=== PATIENT | female | born 1930 | race Caucasian/White ===

== ENCOUNTER 2017-01-19 13:59 | Inpatient (IN) | payer MEDICARE, BC ==
[~2017-01-19] VITALS: Ht 160 cm; Wt 50.3 kg
--- NOTE | ~2017-01-19 | HP ---
PATIENT: OLIVA MARIE MEDICAL RECORD: [id number] ACCOUNT: [id number] LOCATION:[id number] : 31 ADMISSION DATE: 01/19/17 HISTORY AND PHYSICAL EXAMINATION CHIEF COMPLAINT: Back pain. HISTORY OF PRESENT ILLNESS: An 86-year-old white female patient, currently of mine at [facility] who fell a couple of weeks ago and has been complaining of back pain ever since. MRI was obtained that showed a T12 compression fracture. 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 She has been set up with Dr. Arias who was going to perform kyphoplasty. At this time, we will admit the patient to the hospital where she will get a kyphoplasty tomorrow and then be sent back to [facility]. PAST MEDICAL HISTORY: Anemia of chronic kidney disease, dementia, depression, fibromyalgia, GERD, hypertension, lupus, obstructive sleep apnea, osteoporosis and history of pancreatitis. PAST SURGICAL HISTORY: Tonsillectomy and adenoidectomy, cataract surgery, hysterectomy, cholecystectomy and right eye removal. FAMILY HISTORY: Noncontributory. SOCIAL HISTORY: Nonsmoker, nondrinker. ALLERGIES: AMBIEN, CIPRO, DEMEROL, FLAGYL, LATEX, MORPHINE, PYRIDIUM ROCEPHIN AND XANAX. MEDICATIONS: Tums as needed, Colace as needed, diclofenac 75 mg twice a day, ferrous sulfate 325 mg twice a day, fish oil 1000 mg twice a day, Imuran 50 mg a day, potassium chloride 10 mEq a day, multivitamin once a day, prednisone 10 mg a day, Prilosec 20 mg b.i.d., vitamin B12 of 1000 mcg a day, vitamin B6 of 100 mcg a day, vitamin C 500 mg a day, Prozac 20 mg a day, Ativan 0.5 mg q.8 hours p.r.n., Lasix 20 mg a day, Clonidine p.r.n., Coreg 25 mg b.i.d., losartan 50 mg b.i.d., erythromycin ointment to each eye, Flexeril 10 mg p.r.n., Tylenol p.r.n. REVIEW OF SYSTEMS: CONSTITUTIONAL: No fever or chills. HEENT: No congestion or runny nose. CARDIOVASCULAR: No chest pain. RESPIRATORY: Lungs, no wheezes or cough or shortness of breath. GASTROINTESTINAL: Abdomen, positive for constipation, no abdominal pain. MUSCULOSKELETAL: Positive for back pain. NEUROLOGIC: Positive for memory loss. PSYCHIATRIC: Positive for anxiety and depression. PHYSICAL EXAMINATION: GENERAL: No acute distress. HEENT: Normocephalic, atraumatic. NECK: Supple. LUNGS: Clear to auscultation bilaterally. CARDIOVASCULAR: Regular rate and rhythm. II/ systolic ejection murmur, 1+ pedal edema. HISTORY AND PHYSICAL [id number] OLIVA MARIE ABDOMEN: Soft, nontender to palpation. EXTREMITIES: 1+ pedal edema. No clubbing or cyanosis. NEUROLOGIC: Awake, alert, oriented times 3. ASSESSMENT AND PLAN: Acute T12 compression fracture. PLAN: We will admit the patient to the hospital. Consult Dr. Arias to perform kyphoplasty. Discharged back to [facility] tomorrow. TRANSINT:[id number] Voice Confirmation ID: [id number] DOCUMENT ID: [id number] AUDREY VIVEROS MD CC: [id number] DICTATION DATE: 01/19/17 1618 CUSTOMS COLLECTOR: 01/19/[address] [facility] [address] [place] [address]
--- NOTE | ~2017-01-19 | OP ---
PATIENT NAME: OLIVA MARIE MEDICAL RECORD: [id number] :32 LOCATION:D.[id number] ADMISSION DATE:01/20/17 SURGEON: JOSE GOODWIN MD DATE OF OPERATION: 01/20/2017 PREOPERATIVE DIAGNOSIS: T12 osteoporotic compression fracture. POSTOPERATIVE DIAGNOSIS: T12 osteoporotic compression fracture. PROCEDURE: T12 kyphoplasty and T12 bone biopsy. DESCRIPTION OF TECHNIQUE: After induction of general endotracheal anesthesia, the patient was rolled prone on chest and hip rolls. The thoracic and lumbar spines were prepped and draped in usual sterile fashion. Biplanar fluoroscopic x-ray localized the T12 pedicles on both sides. A Jamshidi needle was used to cannulate the pedicle on both sides. A kyphoplasty balloon was advanced through the cannula on both sides. The balloon was inflated under fluoroscopic control with good reduction of the compression fracture. The balloons were deflated and the voids created by the balloons were back filled with methyl methacrylate bone cement. Good position of the cement was confirmed with biplanar fluoroscopic x-ray. The cannula were removed. Two stab incisions were closed with kwame. A sterile dressing was applied to both the wounds. The patient was awakened in good condition and taken to recovery. All counts were reported as correct. Estimated blood loss was 5 cc. TRANSINT:[id number] Voice Confirmation ID: [id number] DOCUMENT ID: [id number] JOSE GOODWIN MD CC: [id number] DICTATION DATE: 01/21/17 0341 CLINICAL RESOURCE MANAGER: 01/21/17 0432 ADM IN [facility] [id number] [place] [address]
--- NOTE | 2017-01-19 14:32 | NUR ---
RECEIVED TO ROOM 2224 FROM [facility] VIA WHEELCHAIR. ASSITED INTO BED WITH FALL PRECAUTIONS IN PLACE. FAMILY AT BEDSIDE AND HISTORY AND ASSESSMENT PERFORMED PER FLOWSHEET. 24G IV SITED TO PT'S LEFT FOREARM AND SECURED WITH PAPER TAPE. PT DENIES FURTHER NEEDS OR PAIN AT THIS TIME. CALL LIGHT IN REACH, WILL CONTINUE WITH PLAN OF CARE.
[2017-01-19] MEDS ORDERED: CALCIUM 600+D T1 TA1 PO (14:50)
[2017-01-19] MEDS ORDERED: COLACE100 MG PO (14:51)
[2017-01-19] MEDS ORDERED: VOLTAREN75 MG PO (14:51)
[2017-01-19] MEDS ORDERED: FERROUS SULFAT325 MG PO (14:52)
[2017-01-19] MEDS ORDERED: FISH OIL 1,0001 CA1 PO (14:52)
[2017-01-19] MEDS ORDERED: K-TAB10 MEQ PO (14:53)
[2017-01-19] MEDS ORDERED: IMURAN50 MG PO (14:53)
[2017-01-19] MEDS ORDERED: MULTIPLE VITAMI1 TA1 PO (14:54)
[2017-01-19] MEDS ORDERED: PREDNISONE10 MG PO (14:54)
[2017-01-19] MEDS ORDERED: OMEPRAZOLE20 M1 PO (14:55)
[2017-01-19] MEDS ORDERED: VITAMIN B-121000 MCG PO (14:55)
[2017-01-19] MEDS ORDERED: VITAMIN B650 MG PO (14:55)
[2017-01-19] MEDS ORDERED: ASCORBIC ACID500 MG PO (14:56)
[2017-01-19] MEDS ORDERED: SYSTANE 0.3-0.4%5 ML EACH EYE (14:56)
[2017-01-19] MEDS ORDERED: FLUOROMETHOLONE5 ML LEFT EYE (14:56)
[2017-01-19] MEDS ORDERED: TIMOPTIC 0.25% O5 M1 LEFT EYE (14:57)
[2017-01-19] MEDS ORDERED: ANUSOL-HC25 MG RC (14:57)
[2017-01-19] MEDS ORDERED: ACETAMINOPHEN325 MG PO (14:58)
[2017-01-19] MEDS ORDERED: CYCLOBENZAPRINE10 MG PO (14:58)
[2017-01-19] MEDS ORDERED: DULCOLAX5 MG PO (14:58)
[2017-01-19] MEDS ORDERED: ULTRAM50 MG PO (14:59)
[2017-01-19] MEDS ORDERED: FUROSEMIDE20 MG PO (15:00)
[2017-01-19] MEDS ORDERED: PROZAC20 MG PO (15:00)
[2017-01-19] MEDS ORDERED: ATIVAN0.5 MG PO (15:00)
[2017-01-19 15:01] VITALS: BP 189/66; BMI 19.8
[2017-01-19] MEDS ORDERED: CATAPRES0.1 MG PO (15:01)
[2017-01-19] MEDS ORDERED: COREG25 MG PO (15:02)
[2017-01-19] MEDS ORDERED: COZAAR50 MG PO (15:02)
[2017-01-19] MEDS ORDERED: ILOTYCIN1 GM RIGHT EYE (15:04)
[2017-01-19 16:42] VITALS: BP 189/66
[2017-01-19 17:23] LABS: APPEARANCE CLEAR (CLEAR); COLOR YELLOW (YELLOW); LEUKOCYTE ESTERASE TRACE (NEGATIVE); NITRITE POSITIVE (NEGATIVE); PROTEIN NEGATIVE (NEGATIVE)
[2017-01-19 17:24] LABS: BILIRUBIN NEGATIVE (NEGATIVE); GLUCOSE NEGATIVE (NEGATIVE); KETONE NEGATIVE (NEGATIVE); UROBILINOGEN NORMAL (NORMAL)
[2017-01-19 17:26] LABS: WHITE CELLS - URINE >50 /hpf (0-5)
[2017-01-19 17:29] LABS: BACTERIA MANY /hpf (NONE SEEN); EPITHELIAL CELLS OCC /hpf (0-5); RED CELLS - URINE 0-5 /hpf (0-5)
[2017-01-19 20:00] VITALS: BP 174/60
--- NOTE | 2017-01-19 20:15 | NUR ---
PATIENT RESTING IN BED AND DENIES NEEDS AT THIS TIME. BED IN LOWEST POSITION AND CALL LIGHT WITHIN REACH. ENCOURAGED THE PATIENT TO CALL IF SHE HAS NEEDS.
[2017-01-20] VITALS: BP 173/68
[2017-01-20 04:00] VITALS: BP 162/87
[2017-01-20 06:06] LABS: BASOPHILS 0.3 % (0-2); EOSINOPHILS 3.5 % (0-7); HEMATOCRIT 29.7 % (36.0-48.0); HEMOGLOBIN 9.6 g/dL (12-16); IMMATURE GRANULOCYTES 0.6 % (0-5); MCHC 32.3 g/dL (31.0-37.0); MCV 92.8 fL (80.0-100.0); MEAN PLATELET VOLUME 11.1 fL (7.4-10.4); MONOCYTES 9.3 % (2-11); NEUTROPHILS 63.3 % (40-80); WBC 3.4 10x3/uL (4.8-10.8)
[2017-01-20 06:08] LABS: PLATELET COUNT 104 10x3/uL (130-400)
[2017-01-20 06:18] LABS: INR 0.93 (0.85-1.17); PROTIME 12.3 SECONDS (11.6-15.0)
[2017-01-20 06:42] LABS: ALBUMIN 2.4 g/dL (3.4-5.0); ANION GAP 12.7 mmol/L (8-16); BILIRUBIN - TOTAL 0.45 mg/dL (0.2-1.3); CALCIUM 8.7 mg/dL (8.5-10.1); CARBON DIOXIDE 25.6 mmol/L (21.0-32.0); CREATININE - SERUM 1.2 mg/dL (0.6-1.3); POTASSIUM - SERUM 3.3 mmol/L (3.5-5.1); PROTEIN - SERUM 7.1 g/dL (6.4-8.2)
--- NOTE | 2017-01-20 08:00 | NUR ---
ASSESSMENT PER FLOW SHEET.PT WITHOUT DISTRESS THIS AM. LOOSE STOOLS THIS AM, BROWNISH GREEN IN COLOR.REDNESS NOTED TO BILATERAL INNER BUTTOCK, BUTT PASTE APPLIED.FALL PREVENTION IN PLACE WITH BED ALARM ON AND FUNCTIONING.
[2017-01-20 08:54] VITALS: BP 183/72
[2017-01-20 11:55] VITALS: BP 136/89
--- NOTE | 2017-01-20 13:42 | NUR ---
TO OR VIA BED
[2017-01-20 14:47] VITALS: Ht 160 cm; Wt 50.3 kg
[2017-01-20 15:40] VITALS: BP 153/62
--- NOTE | 2017-01-20 15:52 | NUR ---
PT BACK FROM PACU VIA BED.DRESSING TO BACK CDI.PT WITHOUT SIGNS OF PAIN.VSS.FAMILY AT BEDSIDE AND THEY WANT TO SPEAK WITH .
--- NOTE | 2017-01-20 15:55 | NUR ---
PAGE TO PER FAMILY REQUEST.CALL TRANSFERRED TO ROOM.
--- NOTE | 2017-01-20 18:01 | NUR ---
VSS. PT REMAINS WITHOUT DISTRESS.WITHOUT SIGNS OF PAIN.FALL PREVENTION REMAINS IN PLACE WITH BED ALARM ON AND DOOR OPEN.CONT PLAN OF CARE
--- NOTE | 2017-01-20 18:57 | NUR ---
DR GOODWIN TO SEE PT THIS AFTERNOON.CHRIST NOT PRESENT AT THIS TIME.
[2017-01-20 20:00] VITALS: BP 148/55
--- NOTE | 2017-01-20 20:00 | NUR ---
PATIENT RESTING IN BED WITH CAREGIVER AT BEDSIDE AND HAS NO VISIBLE SIGNS OF DISTRESS. BED IN LOWEST POSITION, CALL LIGHT WITHIN REACH, AND BED ALARM ON. ENCOUARAGED THE PATIENT AND CAREGIVER TO CALL IF THEY HAVE NEEDS.
[2017-01-21] VITALS: BP 152/71
[2017-01-21 04:00] VITALS: BP 167/70
[2017-01-21 05:33] LABS: BASOPHILS 0 % (0-2); EOSINOPHILS 0.9 % (0-7); HEMATOCRIT 32.1 % (36.0-48.0); HEMOGLOBIN 10.2 g/dL (12-16); IMMATURE GRANULOCYTES 0.5 % (0-5); LYMPHOCYTES 12.7 % (15-50); MCH 29.4 pg (26.0-34.0); MCHC 31.8 g/dL (31.0-37.0); MCV 92.5 fL (80.0-100.0); MEAN PLATELET VOLUME 11.1 fL (7.4-10.4); MONOCYTES 8.2 % (2-11); NEUTROPHILS 77.7 % (40-80); PLATELET COUNT 118 10x3/uL (130-400); RBC 3.47 10x6/uL (4.00-5.40); RDW 17.1 % (11.5-14.5)
[2017-01-21 05:45] LABS: WBC 5.8 10x3/uL (4.8-10.8)
[2017-01-21 05:52] LABS: ALBUMIN 2.5 g/dL (3.4-5.0); ANION GAP 10.6 mmol/L (8-16); BILIRUBIN - TOTAL 0.64 mg/dL (0.2-1.3); CALCIUM 8.4 mg/dL (8.5-10.1); CARBON DIOXIDE 25.2 mmol/L (21.0-32.0); CREATININE - SERUM 1.3 mg/dL (0.6-1.3); PROTEIN - SERUM 7.4 g/dL (6.4-8.2)
[2017-01-21 06:00] LABS: POTASSIUM - SERUM 3.8 mmol/L (3.5-5.1)
[2017-01-21 08:53] VITALS: BP 173/69
--- NOTE | 2017-01-21 10:24 | NUR ---
CM MET WITH PATIENT AND NEPHEW (STANLEY VALDEZ) REGARDING D/C NEEDS AND PLANS. PATIENT LIVES AT HOME WITH HER SON (AI MARIE) BUT IS FROM [facility] AT THIS TIME. PATIENT WILL RETURN TO [facility] TODAY TO A SKILLED BED BY AMBULANCE. PATIENT WAS INDEPENDENT AT HER HOME BEFORE HER RECENT FALLS. PATIENT HAS A WALKER, CANE, AND CPAP AT HOME. NEPHEW STATED SHE DOES NOT USE CPAP REGULARLY. PATIENTS PCP IS DR. ROSA VILLALBA [facility] PATIENT HAS HAD HOME HEALTH RECENTLY BUT NEPHEW DID NOT KNOW WHICH HH IT WAS. CM WILL CONTINUE TO FOLLOW PATIENT WITH D/C NEEDS AND PLANS. PCP DR. ROSA VILLALBA [facility] EU- [phone] STANLEY VALDEZ (NEPHEW) [phone]
[2017-01-21] MEDS ORDERED: LEVAQUIN500 MG PO (12:18)
--- NOTE | 2017-01-21 12:28 | NUR ---
CM REASSESSMENT NOTE: PATIENT IS DISCHARGING BACK TO [facility] TO A SKILLED BED BY FACILITY [facility]UC[facility] TODAY.
[2017-01-21 13:34] VITALS: BP 156/61
--- NOTE | 2017-01-21 14:39 | NUR ---
REPORT TO [facility],SPOKE WITH MOR
--- NOTE | 2017-01-21 15:04 | NUR ---
DISCHARGE INSTRUCTIONS,STATES UNDERSTANDING PER STANLEY VALDEZ HER NEPHEW AND POA. IV DCD WITH CATH INTACT.IV SITE WITHOUT BREAKDOWN OR ANY SKIN TEARS. DRESING CHANGED TO RIGHT OUTER CALF USING ASEPTIC TECH WITH MEPILEX BORDERED DRESSING.SITE WITHOUT DRAINAGE. FRANCISCO J STATES THAT IS X CHRONIC WOUND SHE HAS BEEN TREATED FOR AT WOUND CLINIC.
--- NOTE | 2017-01-21 15:44 | NUR ---
LEFT UNIT VIA STRETCHER WITH [facility] FOR TRANSPORT TO REHAB
== END 2017-01-21 15:45 | DRG 478 ==
LOC: OBSVTIME → UNDOADMOB 13:59 → D.MS 13:59 → D.OPS 13:59 → EDSTATUS 01-20 11:00 → OBSVTIME 01-20 14:32 → D.MS 01-20 16:47
PROVIDERS: Emergency Medicine; Neurological Surgery; ADMIT Family Medicine
PROC: 0PB43ZX Excision of Thoracic Vertebra, Percutaneous Approach, Diagnostic (ICD-10-PCS; principal; 2017-01-20 11:00)
PROC: 0PU43JZ Supplement Thoracic Vertebra with Synthetic Substitute, Percutaneous Approach (ICD-10-PCS; principal; 2017-01-20 11:00)
PROC: 0PS43ZZ Reposition Thoracic Vertebra, Percutaneous Approach (ICD-10-PCS; principal; 2017-01-20 11:00)
DX: M80.08XA Age-related osteoporosis with current pathological fracture, vertebra(e), initial encounter for fracture (principal); N39.0 Urinary tract infection, site not specified; I10 Essential (primary) hypertension; F03.90 Unspecified dementia, unspecified severity, without behavioral disturbance, psychotic disturbance, mood disturbance, and anxiety; M79.7 Fibromyalgia; K21.9 Gastro-esophageal reflux disease without esophagitis; D63.8 Anemia in other chronic diseases classified elsewhere